=== PATIENT | female | born 1945 | race African-American/Black ===

== ENCOUNTER 2018-10-07 11:51 | Inpatient (IN) | payer MEDICARE ==
[~2018-10-07] VITALS: Ht 157.5 cm; Wt 79.3 kg
[2018-10-07] VITALS (358 sets, daily range): BP systolic 106–148; BP diastolic 62–82; PULSE 36–63; TEMP 97.4–98.4; O2SAT 89–100
[2018-10-07] MEDS ORDERED: DITROPAN 5MG TAB5 MG PO ×2 (12:16→18:00)
[2018-10-07] MEDS ORDERED: ALDACTAZIDE 251 TAB (12:17)
[2018-10-07] MEDS ORDERED: IMDUR 30MG30 MG/TAB PO ×2 (12:18→17:58)
[2018-10-07] MEDS ORDERED: ASPIRIN 81M81 MG/TA2 PO ×2 (12:18→18:01)
[2018-10-07] MEDS ORDERED: ALDACTONE 25MG25 M1 PO ×2 (12:19→17:59)
[2018-10-07] MEDS ORDERED: BENICAR40 MG PO ×2 (12:19→17:59)
[2018-10-07] MEDS ORDERED: BYSTOLIC10 MG PO ×2 (12:20→17:58)
[2018-10-07 12:37] LABS: BASO % 0.1 % (0.0-2.0); EOS % 0.1 % (0-4.0); GRAN # 7.3 (1.4-6.5); GRAN % 85.8 % (42.2-75.2); HEMOGLOBIN 10.9 g/dl (12.5-16.0); LYMPH # 0.8 (1.2-3.4); LYMPH % 9.6 % (20.0-51.0); MEAN CELL VOLUME 99 fl (80.0-100.0); MEAN CORPUSCULAR HEMOGLOBIN 33 pg (27.0-31.0); MEAN CORPUSCULAR HGB CONC 33 g/dl (33.0-37.0); MEAN PLATELET VOLUME 9.7 fl (7.4-10.4); MONO # 0.3 (0.1-0.6); MONO % 3.9 % (1.7-9.3); PLATELET COUNT 194 K/mm3 (130-400); RED BLOOD COUNT 3.35 M/mm3 (4.10-5.30); REDCELL DISTRIBUTION WIDTH-CV 13.1 % (11.5-14.5)
[2018-10-07 12:38] LABS: HEMATOCRIT 33.2 % (37.0-47.0)
[2018-10-07 12:46] LABS: BILIRUBIN,TOTAL 0.4 mg/dL (0.0-1.0); CALCIUM 9.8 mg/dL (8.4-10.2); CREATININE, serum 1.01 (0.52-1.25); MAGNESIUM 2.2 mg/dL (1.6-2.3); PHOSPHOROUS 2.2 mg/dL (2.5-4.5); POTASSIUM 4.6 mmol/L (3.4-5.0); TOTAL PROTEIN 7.7 gm/dL (6.4-8.2)
[2018-10-07 12:53] LABS: COLLECTION METHOD CLEAN CATCH
[2018-10-07 12:59] LABS: PH 5 (5-8); SQUAMOUS EPITHELIAL None Seen /hpf; URINE APPEARANCE Clear; URINE BACTERIA Rare /hpf; URINE BILIRUBIN Negative (NEGATIVE); URINE BLOOD Negative (NEGATIVE); URINE COLOR Straw; URINE GLUCOSE Negative (NEGATIVE); URINE KETONE Negative (NEGATIVE); URINE LEUKOCYTE ESTERASE Negative (NEGATIVE); URINE NITRATE Negative (NEGATIVE); URINE PROTEIN(semi-quant) Negative (NEGATIVE); URINE RBC 0-2 /hpf; URINE UROBILINOGEN Negative (NEGATIVE)
[2018-10-07 13:03] LABS: TROPONIN-I 1.67 ng/mL (0.000-0.035)
[2018-10-07 13:11] LABS: PARTIAL THROMBOPLASTIN TIME 26.3 SECONDS (26.0-37.0); PROTHROMBIN TIME 12.1 SECONDS (9.7-12.8)
[2018-10-07 13:17] LABS: THYROID STIMULATING HORMONE 1.76 uIU/mL (0.465-4.680)
--- NOTE | 2018-10-07 16:44 | NUR ---
ALL MEDICATIONS GIVEN VORB WITH MD. SEE MERGE FOR ALL MEDICATION ADMIN TIMES. SEE MERGE FOR ALL RASS ASSESSMENTS DURING AND POST PROCEDURE. RADIAL PULSE +2. NITRO PASTE APPLIED PRIOR TO PROCEDURE, REFER TO MAR.
--- NOTE | 2018-10-07 17:39 | NUR ---
Patient transported to ICU 4 at this time. Patient monitored on [facility] for transfer. Bedside report given to LIZZ Marx. Patient hooked back up to monitoring equipment. VS stable, patient remains bradycardic with HR in the high 40s. MD aware. Visualized right radial site with RN. Site is clean, dry, and intact with no hematoma or oozing present. Pulse +2. Cap refill <3 seconds. Discussed wrist restrictions with patient and family. All questions addressed.
[2018-10-07] MEDS ORDERED: ALDACTAZIDE 251 TAB PO (17:57)
--- NOTE | 2018-10-07 19:30 | NUR ---
Right radial site assessed. Soft with no hematoma. TR band in place; radial pulses +2. No concerns at this time.
--- NOTE | 2018-10-07 19:32 | NUR ---
Report given to Lisset ZAMUDIO and care transfered.
--- NOTE | 2018-10-07 22:38 | NUR ---
Dr. Cortes placed order for chest with and without contrast for PE protocol. Called radiology assistant and was told for PE protocol only need chest with contrast. Order amended. Tech will come for patient at next availability. VS stable; no concerns at this time.
--- NOTE | 2018-10-07 23:30 | NUR ---
Pt was assisted down to CT via wheelchair with technician inventory specialist and this nurse. Pts CT was ordered with contrast, due to Dopamine administration in right AC IV, pts only IV access, this nurse received verbal verification from primary nurse to assist pt and disconnect for the amount of time needed to administer the contrast. Directly following CT with contrast the IV was connected in the radiology department. Pt was then assisted back to room the same way as departure and situated back in bed per pt preference.
[2018-10-08] VITALS (707 sets, daily range): BP systolic 124–162; BP diastolic 49–84; PULSE 39–65; TEMP 97.6–100; O2SAT 82–100
[2018-10-08 05:47] LABS: BASO % 0.1 % (0.0-2.0); EOS % 0.1 % (0-4.0); GRAN # 6.6 (1.4-6.5); GRAN % 67.7 % (42.2-75.2); HEMOGLOBIN 10.9 g/dl (12.5-16.0); LYMPH # 2.4 (1.2-3.4); LYMPH % 24.7 % (20.0-51.0); MEAN CELL VOLUME 100 fl (80.0-100.0); MEAN CORPUSCULAR HEMOGLOBIN 33 pg (27.0-31.0); MEAN CORPUSCULAR HGB CONC 33 g/dl (33.0-37.0); MEAN PLATELET VOLUME 9.7 fl (7.4-10.4); MONO # 0.7 (0.1-0.6); MONO % 7.1 % (1.7-9.3); PLATELET COUNT 187 K/mm3 (130-400); RED BLOOD COUNT 3.33 M/mm3 (4.10-5.30); REDCELL DISTRIBUTION WIDTH-CV 13.2 % (11.5-14.5)
[2018-10-08 05:50] LABS: HEMATOCRIT 33.3 % (37.0-47.0)
[2018-10-08 06:07] LABS: ALBUMIN 3.9 gm/dL (3.5-5.0); BILIRUBIN,TOTAL 0.5 mg/dL (0.0-1.0); CALCIUM 9.5 mg/dL (8.4-10.2); CHOLESTEROL RISK RATIO 3.8; CREATININE, serum 0.86 (0.52-1.25); POTASSIUM 4.1 mmol/L (3.4-5.0); TOTAL PROTEIN 7.7 gm/dL (6.4-8.2)
[2018-10-08 06:18] LABS: TROPONIN-I 1.57 ng/mL (0.000-0.035)
--- NOTE | 2018-10-08 08:00 | NUR ---
Shift assessment complete at this time. Plan of care reviewed at bedside with patient. Additional time taken to address any other needs or concerns. Bed in low and locked position, call light within reach. Pt denies pain or any other discomfort. Vitals stable at this time. Pt currently remains on Dopamine gtt, HR stable above 60s. R radial cath site clean, dry, et intact with no drainage or hematoma noted at this time. Will continue to monitor.
--- NOTE | 2018-10-08 08:13 | NUR ---
Pt scheduled to have MRI of brain with and without this AM. Stopping Dopamine gtt for now per direction of Dr. Rivers. Will resume gtt if HR further lowers.
--- NOTE | 2018-10-08 11:10 | NUR ---
SW attended clincal rounds to discuss discharge planning. Patient lives independently at home with her in [place]. Patient's PCP is Dr Poncho Caldwell in [place]. Patient not use any DME or home health services. Patient was seen by PT and OT. They report patient is independent with all ADLs and no services will be needed when patient is discharged. Patient will move upstairs to the floor. SW does not anticipate any discharge needs.
--- NOTE | 2018-10-08 11:50 | NUR ---
Pt resting comfortably in bed. Denies pain or any other discomfort. Vitals stable at this time. No changes noted from previous neuro assessment. R radial cath site clean, dry, et intact with no drainage or hematoma. Bed in low position, call light within reach, will continue to monitor.
--- NOTE | 2018-10-08 15:37 | NUR ---
Report called to LIZZ Yoder.
--- NOTE | 2018-10-08 16:00 | NUR ---
Pt alert and oriented. Pt denies pain or SOB. Pt up to unit from ICU. Pt med rec reviewed. Pt IV patent and no redness or infiltration. Pt remains on telemetry. Pt has call light in reach and denies needs.
--- NOTE | 2018-10-08 21:25 | NUR ---
Patient assessed at this time. Denies having pain and discomfort. Alert and oriented x 4, and able to make needs known. Peripheral IV to right AC flushed. Site is without redness, warmth, swelling, and pain. LS CTA. Respirations even and unlabored. Denies SOB and dypsnea. HRR. Telemetry intact. BSAx4. Abdomen soft and non-tender. Mepliex to right knee is CDI. Bandaid to right wrist CDI. No edema noted. Voices no questions, needs, or concerns. Call light is within reach.
[2018-10-09 03:14] VITALS: BP 148/63; PULSE 50; TEMP 99.1
--- NOTE | 2018-10-09 03:33 | NUR ---
Patient resting in bed with eyes closed at this time. Denies having pain and discomfort. Voices no questions, needs, or concerns at this time. Call light is within reach.
--- NOTE | 2018-10-09 07:09 | NUR ---
Report given to day shift nurse.
[2018-10-09 07:44] LABS: BASO % 0.3 % (0.0-2.0); EOS # 0.1 (0.0-0.7); EOS % 2.1 % (0-4.0); GRAN # 4.4 (1.4-6.5); GRAN % 66.5 % (42.2-75.2); HEMOGLOBIN 10.8 g/dl (12.5-16.0); LYMPH # 1.6 (1.2-3.4); LYMPH % 23.8 % (20.0-51.0); MEAN CELL VOLUME 99 fl (80.0-100.0); MEAN CORPUSCULAR HEMOGLOBIN 32 pg (27.0-31.0); MEAN CORPUSCULAR HGB CONC 33 g/dl (33.0-37.0); MEAN PLATELET VOLUME 9.5 fl (7.4-10.4); MONO # 0.5 (0.1-0.6); MONO % 6.8 % (1.7-9.3); PLATELET COUNT 186 K/mm3 (130-400); RED BLOOD COUNT 3.35 M/mm3 (4.10-5.30); REDCELL DISTRIBUTION WIDTH-CV 13.2 % (11.5-14.5)
[2018-10-09 08:02] LABS: CALCIUM 9.3 mg/dL (8.4-10.2); CREATININE, serum 0.86 (0.52-1.25); POTASSIUM 3.7 mmol/L (3.4-5.0)
--- NOTE | 2018-10-09 08:05 | NUR ---
Pt assessment complete. Pt is sitting up in bed eating upon entry, she is A/O x3. Her breathing is even and unlabored on RA. Pt denies SOB. Pt asking why she is receiving scheduled breathing treatments as she does not do this at home and does not feel SOB, clarified with patient the reasoning for this. Pt denies any pain. No N/V. Neuro check WNL. Call light within reach.
[2018-10-09 08:10] VITALS: BP 119/66; PULSE 58; TEMP 98.7
[2018-10-09 08:16] VITALS: BP 120/57; PULSE 99; TEMP 98.2
[2018-10-09] MEDS ORDERED: PLAVIX 75MG TAB75 MG PO (09:52)
[2018-10-09] MEDS ORDERED: LIPITOR 80MG80 MG PO (09:52)
[2018-10-09] MEDS ORDERED: IMDUR 30MG30 MG/TAB PO (09:53)
[2018-10-09] MEDS ORDERED: BENICAR40 MG PO (12:37)
[2018-10-09] MEDS ORDERED: ALDACTONE 25MG25 M1 PO (12:37)
[2018-10-09] MEDS ORDERED: ASPIRIN 81M81 MG/TA2 PO (12:37)
--- NOTE | 2018-10-09 13:10 | NUR ---
Discharge paperwork and instructions reviewed with patient. All questions answered at this time. IV to RAC dc'd, catheter tip intact. Pt ambulated without issues to and from wheelchair. Wheeled out at this time.
== END 2018-10-09 13:15 | disposition home or self-care (01) | DRG 280 ==
LOC: COL.ER 11:51 → EDBD 11:53 → COL.ER 11:53 → ICU 15:30 → MEDICAL 10-08 15:59
PROVIDERS: Emergency Medicine; Physician Assistant; ADMIT Internal Medicine
PROC: 4A023N7 Measurement of Cardiac Sampling and Pressure, Left Heart, Percutaneous Approach (ICD-10-PCS; principal; 2018-10-07)
PROC: B2111ZZ Fluoroscopy of Multiple Coronary Arteries using Low Osmolar Contrast (ICD-10-PCS; 2018-10-07)
DX: I25.10 Atherosclerotic heart disease of native coronary artery without angina pectoris (principal); I21.4 Non-ST elevation (NSTEMI) myocardial infarction; I63.441 Cerebral infarction due to embolism of right cerebellar artery; I50.30 Unspecified diastolic (congestive) heart failure; R00.1 Bradycardia, unspecified; Z87.891 Personal history of nicotine dependence; E04.1 Nontoxic single thyroid nodule; Z86.19 Personal history of other infectious and parasitic diseases; M25.561 Pain in right knee; I11.0 Hypertensive heart disease with heart failure; R40.2413 Glasgow coma scale score 13-15, at hospital admission
CPT/HCPCS: 99223-AI; 99233-AI; 99239; A9585; C1769; J1265; J1644; J1815; J2250; J3010; Q9967

== ENCOUNTER 2018-10-17 13:25 | Emergency (ER) | payer MEDICARE ==
[~2018-10-17] VITALS: Ht 157.5 cm; Wt 77.7 kg
[~2018-10-17 13:25] MED LIST: ALDACTAZIDE 251 TAB; ALDACTAZIDE 251 TAB PO; ALDACTONE 25MG25 M1 PO; ASPIRIN 81M81 MG/TA2 PO; BENICAR40 MG PO; BYSTOLIC10 MG PO; DITROPAN 5MG TAB5 MG PO; IMDUR 30MG30 MG/TAB PO; LIPITOR 80MG80 MG PO; PLAVIX 75MG TAB75 MG PO
[2018-10-17 13:31] VITALS: TEMP 98.7
[2018-10-17 14:16] LABS: BASO % 0.2 % (0.0-2.0); EOS # 0.1 (0.0-0.7); EOS % 2.5 % (0-4.0); GRAN # 2.7 (1.4-6.5); GRAN % 52.9 % (42.2-75.2); HEMOGLOBIN 12.2 g/dl (12.5-16.0); LYMPH # 1.8 (1.2-3.4); MEAN CELL VOLUME 96 fl (80.0-100.0); MEAN CORPUSCULAR HEMOGLOBIN 32 pg (27.0-31.0); MEAN CORPUSCULAR HGB CONC 34 g/dl (33.0-37.0); MEAN PLATELET VOLUME 9.1 fl (7.4-10.4); MONO # 0.5 (0.1-0.6); MONO % 10.2 % (1.7-9.3); PLATELET COUNT 234 K/mm3 (130-400); RED BLOOD COUNT 3.78 M/mm3 (4.10-5.30); REDCELL DISTRIBUTION WIDTH-CV 12.9 % (11.5-14.5)
[2018-10-17 14:22] LABS: INR 1.1 (0.8-3.0); PROTHROMBIN TIME 12.6 SECONDS (9.7-12.8)
[2018-10-17 14:24] LABS: BILIRUBIN,TOTAL 0.6 mg/dL (0.0-1.0); CREATININE, serum 0.8 (0.52-1.25); MAGNESIUM 1.9 mg/dL (1.6-2.3); PHOSPHOROUS 3.2 mg/dL (2.5-4.5); POTASSIUM 3.8 mmol/L (3.4-5.0); TOTAL PROTEIN 7.7 gm/dL (6.4-8.2)
[2018-10-17 14:25] LABS: PARTIAL THROMBOPLASTIN TIME 31.6 SECONDS (26.0-37.0)
[2018-10-17 14:41] LABS: TROPONIN-I 0.03 ng/mL (0.000-0.035)
[2018-10-17 14:58] LABS: THYROID STIMULATING HORMONE 1.43 uIU/mL (0.465-4.680)
[2018-10-17 14:59] LABS: HEMATOCRIT 36.3 % (37.0-47.0)
[2018-10-17 19:10] VITALS: BP 154/80; PULSE 71
== END 2018-10-17 19:10 | disposition short-term general hospital (02) ==
LOC: COL.ER 13:25
PROVIDERS: Emergency Medicine
DX: I48.91 Unspecified atrial fibrillation (principal); I25.10 Atherosclerotic heart disease of native coronary artery without angina pectoris; Z86.73 Personal history of transient ischemic attack (TIA), and cerebral infarction without residual deficits; Z79.82 Long term (current) use of aspirin
CPT/HCPCS: J1644; J7030

== ENCOUNTER 2019-01-23 09:53 | Emergency (ER) | payer MEDICARE ==
[~2019-01-23] VITALS: Ht 157.5 cm; Wt 73.6 kg
[2019-01-23 10:01] VITALS: TEMP 98.5
[2019-01-23] MEDS ORDERED: NORVASC 5MG5 MG/TAB PO (10:09)
[2019-01-23] MEDS ORDERED: CORDARONE200 MG/TAB PO (10:12)
[2019-01-23] MEDS ORDERED: GLUCOPHAGE500 MG/TAB PO (10:17)
[2019-01-23] MEDS ORDERED: ELIQUIS 5MG PO (10:19)
[2019-01-23 10:24] LABS: BASO % 0.2 % (0.0-2.0); EOS # 0.1 (0.0-0.7); EOS % 2.2 % (0-4.0); GRAN # 2.3 (1.4-6.5); GRAN % 56.1 % (42.2-75.2); HEMOGLOBIN 11.7 g/dl (12.5-16.0); LYMPH # 1.2 (1.2-3.4); LYMPH % 28.7 % (20.0-51.0); MEAN CELL VOLUME 98 fl (80.0-100.0); MEAN CORPUSCULAR HEMOGLOBIN 32 pg (27.0-31.0); MEAN CORPUSCULAR HGB CONC 33 g/dl (33.0-37.0); MEAN PLATELET VOLUME 9.6 fl (7.4-10.4); MONO # 0.5 (0.1-0.6); MONO % 12.6 % (1.7-9.3); PLATELET COUNT 203 K/mm3 (130-400); RED BLOOD COUNT 3.65 M/mm3 (4.10-5.30); REDCELL DISTRIBUTION WIDTH-CV 14.1 % (11.5-14.5)
[2019-01-23 10:25] LABS: HEMATOCRIT 35.7 % (37.0-47.0)
[2019-01-23 10:30] LABS: PARTIAL THROMBOPLASTIN TIME 37.8 SECONDS (26.0-37.0)
[2019-01-23 10:31] LABS: ALANINE AMINOTRANSFERASE 24 U/L (9-52); ALBUMIN 4.2 gm/dL (3.5-5.0); ALKALINE PHOSPHATASE 76 U/L (50-136); ANION GAP 11 mmol/L (7-16); AST,SGOT 31 U/L (15-37); BILIRUBIN,TOTAL 0.6 mg/dL (0.0-1.0); BLOOD UREA NITROGEN 18 mg/dL (7-17); CARBON DIOXIDE 23 mmol/L (22-30); CHLORIDE 107 mmol/L (98-107); CREATININE, serum 0.92 (0.52-1.25); GLUCOSE 112 mg/dL (74-106); INR 1.5 (0.8-3.0); POTASSIUM 4.4 mmol/L (3.4-5.0); PROTHROMBIN TIME 17.4 SECONDS (9.7-12.8); SODIUM 141 mmol/L (137-145); TOTAL PROTEIN 7.8 gm/dL (6.4-8.2)
[2019-01-23 10:47] LABS: TROPONIN-I < 0.012 ng/mL (0.000-0.035)
[2019-01-23 11:18] VITALS: BP 119/61; PULSE 44
== END 2019-01-23 11:21 | disposition home or self-care (01) ==
LOC: COL.ER 09:53
PROVIDERS: Family Medicine
DX: R00.1 Bradycardia, unspecified (principal); R53.1 Weakness; I48.91 Unspecified atrial fibrillation; Z79.82 Long term (current) use of aspirin